=== PATIENT | male | born 1945 | race Caucasian/White ===

== ENCOUNTER 2021-11-09 10:50 | Emergency (ER) | payer MEDICARE, OTHER, SELFPAY ==
--- NOTE | ~2021-11-09 | XR_ITS ---
XR abdomen/kub 1V 11/09/2021 11:56 INDICATION: Abdominal pain. Constipation. TECHNIQUE: KUB COMPARISON: None FINDINGS: Bowel gas pattern is normal. There is no evidence of free air, mass, organomegaly, ascites or obstruction. No abnormal calculi are seen. The bones appear intact. Moderate colonic fecal load ing. There is a gallstone in the right upper abdomen. IMPRESSION: 1: No acute abdominal abnormality identified. 2: Cholelithiasis. Reviewed, dictated and finalized at location A. [facility]
[2021-11-09 11:14] VITALS: BP 168/116; PULSE 102; RESP 40; TEMP 37.2; O2SAT 99
--- NOTE | 2021-11-09 12:55 | ED.GENADULT ---
HPI - General Adult General Chief complaint: Abdominal Pain Stated complaint: stomach pain Time Seen by Provider: 11/09/21 12:44 Source: patient and RN notes reviewed Mode of arrival: ambulatory Limitations: no limitations History of Present Illness HPI narrative: Patient presents today with a 1 week history of generalized abdominal pain, constipation. Reports he can have a hard stool if he strains daily. Denies fever, nausea, vomiting, diarrhea. Also states that he has been urinating frequently, but small amounts, and this also started 1 week ago. Currently rates pain 8/10 and has not tried any [id number] treatment prior to arrival. Smokes 2 packs a day. Reports he drinks alcohol daily as well. MD complaint: Abdominal pain Related Data Home Medications Medication Instructions Recorded Confirmed No Home Medications 11/09/21 11/09/21 Allergies Allergy/AdvReac Type Severity Reaction Status Date / Time Penicillins Allergy Unknown Rash Verified 11/09/21 12:03 Review of Systems Review of Systems: CONSTITUTIONAL: Denies body aches, fever, chills, or sweats. EYES: Denies visual changes, redness, or discharge. ENT: Denies rhinorrhea, congestion, sore throat, or otalgia. CARDIOVASCULAR: Denies chest pain, palpitations, or edema. RESPIRATORY: Denies cough or dyspnea. GASTROINTESTINAL: Denies nausea, vomiting, or diarrhea.+ Abdominal pain, constipation GENITOURINARY: Denies dysuria or hematuria. SKIN: Denies rash, itching, or wounds. MUSCULOSKELETAL: Denies back pain, joint pain, or myalgia. NEUROLOGIC: Denies headache, numbness, tingling, or weakness. PSYCH: Denies depression or anxiety. PMFSH Social History Social History Smoking status: Heavy tobacco smoker Alcohol intake: current Comments At time of signature, I have reviewed and agree with nursing past medical, surgical, social and family history unless otherwise noted. Please see nursing chart for further information. There is no relevant family history pertinent to the presenting complaint Exam Narrative: GENERAL: Mildly ill-appearing, well-nourished, and in mild pain distress. HEAD: Normocephalic, atraumatic. EYES: EOMI. No redness or drainage. Conjunctivae normal. ENT: Mucous membranes pink and moist. NECK: Normal AROM. CHEST: No respiratory distress. Clear to auscultation. HEART: Regular rate and rhythm. No murmur appreciated. Normal peripheral pulses. ABDOMEN: Soft,nondistended, normal active bowel sounds. Tenderness to the epigastrium and right upper quadrant with rebound and guarding. MUSCULOSKELETAL: No bony tenderness. EXTREMITIES: Normal range of motion. No edema. SKIN: Warm, dry, no rash. Capillary refill normal. Normal skin turgor. NEURO: No focal deficits. Alert and oriented x3. Gait steady. PSYCH: Normal affect. No signs of depression or anxiety. Course Course Level of Care: Express Care Visit Vital Signs Vital signs: Vital Signs Temperature 99 F 11/09/21 11:14 Pulse Rate 102 H 11/09/21 11:14 Respiratory Rate 40 H 11/09/21 11:14 Blood Pressure 168/116 H 11/09/21 11:14 Pulse Oximetry 99 11/09/21 11:14 Temperature 99 F 11/09/21 11:14 Pulse Rate 102 H 11/09/21 11:14 Respiratory Rate 40 H 11/09/21 11:14 Blood Pressure 168/116 H 11/09/21 11:14 Pulse Oximetry 99 11/09/21 11:14 Reviewed. Patient states he is breathing fast due to pain. Transfer Transfered to: [facility] Transportation: Other (Private vehicle) Transfer rationale: Abdominal pain Accepting physician: Ramos Medical Decision Making Differential Diagnosis Differential Diagnosis: Constipation, cholecystitis, gallstones, pancreatitis, gastritis, gastric ulcer Vital Signs Vital Signs: Vital Signs Temperature 99 F 11/09/21 11:14 Pulse Rate 102 H 11/09/21 11:14 Respiratory Rate 40 H 11/09/21 11:14 Blood Pressure 168/116 H 11/09/21 11:14 Pulse O
== END 2021-11-09 13:01 | disposition short-term general hospital (02) ==
PROVIDERS: Emergency Provider Nurse Practitioner
DX: R10.11 Right upper quadrant pain (principal); F17.200 Nicotine dependence, unspecified, uncomplicated
CPT/HCPCS: 74018; 99203; G0463